=== PATIENT | female | born 1960 | race Caucasian/White ===

== ENCOUNTER 2018-01-18 12:30 | Outpatient (CLI) | payer OTHER ==
[2018-01-18 13:04] LABS: Bilirubin Negative (Negative); Blood, Urine Negative (Negative); Clarity CLEAR (Clear); Glucose, Urine (Dipstick) Negative (Negative); Leukocyte Moderate (Negative); Nitrite Negative (Negative); Protein, Urine (Dipstick) Negative (Neg-Trace); Specific Gravity, Urine 1.011 (1.002-1.036); Urobilinogen 0.2 mg/dL (0.2-1.0)
[2018-01-18 13:12] LABS: Bacteria/HPF Rare-Few HPF (None Seen); Hyaline Casts/LPF 0-3 HYALINE CAST LPF (0-3 Hyaline); RBC/HPF None Seen HPF (0-3); Squamous Epithelial 0-3 HPF (0-3)
[2018-01-18 13:21] LABS: Anion Gap 11 mmol/L (10-20); BUN (Urea Nitrogen) 17 mg/dL (9.8-20.1); Calc. Creatinine Clearance 0 mL/min (70-130); Calcium 9.9 mg/dL (7.8-10.44); Carbon Dioxide 29 mmol/L (22-29); Chloride 105 mmol/L (98-107); Estimated GFR-MDRD 89; Glucose 93 mg/dL (70-105); Potassium 4.1 mmol/L (3.5-5.1); Sodium 141 mmol/L (136-145)
--- NOTE | 2018-01-18 15:34 | ULT ---
BILATERAL RENAL ULTRASOUND COMPLETE: 01/18/18 HISTORY: 57-year-old female with history of ureter disorder. COMPARISON: 04/27/16. Right kidney measures 12.1 x 4.4 x 5.7 cm. The left kidney measures 11.4 x 5.0 x 5.0 cm. There is slight fullness of both right and left renal upper collecting systems primarily renal pelvis es but stable from prior exams. Small stable right renal hyperechoic focus probably a small angiomyol ipoma. IMPRESSION: Minimal stable dilatation of the right extrarenal pelvis with less marked changes on the left side. 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 POS: RADHA
--- NOTE | 2018-01-18 17:13 | NM ---
RADIONUCLIDE RENOGRAM: 01/18/18 HISTORY: Chronic UPJ obstruction. FINDINGS: There is good arterial flow into each kidney and good uptake of contrast initially within the renal c ollecting systems. Good washout is demonstrated bilaterally. T1/2 right kidney is 8.9 minutes. Left k idney 6.1 minutes. Normalized GFR is 183 mL/minute. Right kidney accounts for 47% of the uptake. Left kidney accounts for 53%. IMPRESSION: Symmetric and appropriate bilateral renal function. No evidence of urinary tract obstruction. POS: NANDO
== END 2018-01-18 12:31 | disposition home or self-care (01) ==
LOC: ULT 12:30
PROVIDERS: ATTEND Urology
DX: N13.5 Crossing vessel and stricture of ureter without hydronephrosis (principal); R35.0 Frequency of micturition; D30.01 Benign neoplasm of right kidney
CPT/HCPCS: 76770; 78708; 80048; 81001; 87086; A4641; A9562

== ENCOUNTER 2018-11-19 08:45 | Inpatient (IN) | payer OTHER ==
[2018-12-31] MEDS ORDERED: Sodium Chloride 0.9% 100 ML ONE (06:58)
[2018-12-31] MEDS ORDERED: Tranexamic Acid 1,000 MG/10 ML VIAL ONE ×2 (06:58→12:04)
[2018-12-31] MEDS ORDERED: Vancomycin HCl 1.5 GM in Sodium Chloride 0.9% 250 ML 300 ML IVPB SCH ×2 (07:15→20:00)
[2018-12-31] MEDS ORDERED: Scopolamine 1.5 mg/72 hour Patch ONE (07:59)
[2018-12-31] MEDS ORDERED: Fentanyl 100 MCG/2 ML VIAL ONE (08:13)
[2018-12-31] MEDS ORDERED: Midazolam HCl 2 mg/2 ml Vial ONE (08:13)
[2018-12-31] MEDS ORDERED: Ropivacaine HCl/PF 250 ML in Premix Bag 1 BAG NERVE BLCK SCH (09:23)
[2018-12-31] MEDS ORDERED: traMADol HCl 50 MG TAB PO PRN ×2 (09:23)
[2018-12-31] MEDS ORDERED: Ondansetron PF 4 MG/2 ML Vial IVP PRN ×2 (09:23→09:52)
[2018-12-31] MEDS ORDERED: Promethazine HCl 25 MG/ML VIAL IM PRN ×3 (09:23→11:54)
[2018-12-31] MEDS ORDERED: HYDROcodone/Acetaminophen 10/325 mg Tablet PO PRN (09:23)
[2018-12-31] MEDS ORDERED: Zolpidem Tartrate 5 MG TAB PO PRN ×2 (09:23→09:52)
[2018-12-31] MEDS ORDERED: Bupivacaine PF 0.5% 30 ML VIAL ONE ×2 (09:29→09:31)
[2018-12-31] MEDS ORDERED: diphenhydrAMINE 25 MG CAP PO PRN ×2 (09:52→09:53)
[2018-12-31] MEDS ORDERED: Acetaminophen 325 MG TAB PO PRN (09:52)
[2018-12-31] MEDS ORDERED: Tranexamic Acid 1,000 MG in Sodium Chloride 0.9% 100 ML IVPB SCH (10:00)
[2018-12-31] MEDS ORDERED: PROPOFOL 20 ML ONE ×2 (10:06→10:07)
[2018-12-31] MEDS ORDERED: Ropivacaine 0.2% HCl/PF (40 MG/20 ML VIAL) ONE (11:24)
[2018-12-31] MEDS ORDERED: Ropivacaine 0.5% HCl/PF (150 MG/30 ML VIAL) ONE (11:24)
[2018-12-31] MEDS ORDERED: PROPOFOL 200 MG/20 ML VIAL ONE (11:31)
[2018-12-31] MEDS ORDERED: PHENYLEPHRINE-NS 100 MCG/ML 10 ML SYRINGE ONE (11:31)
[2018-12-31] MEDS ORDERED: Ketorolac Tromethamine 30 MG/ML VIAL ONE (11:31)
[2018-12-31] MEDS ORDERED: Ondansetron PF 4 MG/2 ML Vial ONE (11:31)
[2018-12-31] MEDS ORDERED: Dexamethasone 20 MG/5 ML VIAL ONE (11:31)
[2018-12-31] MEDS ORDERED: Ondansetron HCl/PF 4 MG/2 ML Vial IVP PRN (11:54)
[2018-12-31] MEDS ORDERED: Promethazine HCl 25 MG/ML VIAL SLOW IVP PRN (11:54)
--- NOTE | 2018-12-31 12:12 | OP ---
DATE OF PROCEDURE: 12/31/2018 SURGEON: Nicolas Milligan MD SUPERVISOR CEMETERY WORKERS: Carlos Enrique Cavanaugh PA-C PREOPERATIVE DIAGNOSIS: Left knee osteoarthrosis. POSTOPERATIVE DIAGNOSIS: Left knee osteoarthrosis. PROCEDURE PERFORMED: Left total knee replacement using Fazal pinless navigation. ANESTHESIA: She had general anesthetic as well as preoperative block. BLOOD LOSS: Minimal. COMPLICATIONS: None. DISPOSITION: She did go to Recovery Room in stable condition. IMPLANTS: To the left knee include Fazal triathlon total knee system, femur size 5 cruciate retaining femur. Size 4 primary tibial base plate. We used a 4 x 9 mm CS X3 plastic and we used A29 x 9 X3 patella. INDICATIONS: Xenia is a 58-year-old active female, who has unfortunately had knee arthritis for many years. At this time, she has failed nonoperative treatment and wished to have her knee replaced. PROCEDURE IN DETAIL: After all appropriate consent forms were explained and signed, the patient was taken back to the operating room and at this time was given general anesthetic. Once the level of anesthesia was appropriate, a well-padded tourniquet was placed on the left leg, and the leg was then prepped and draped in standard surgical fashion. The limb was exsanguinated and tourniquet taken up to 300 mmHg. Midline incision was made with a 10 blade down through the skin and subcutaneous tissue. Bovie electrocautery was used to coagulate any brisk venous bleeding. A new blade was used to make a medial parapatellar arthrotomy. Small subperiosteal release was performed medially and excess fat pad was removed. The knee was flexed up to gain access to the femur. The femur was navigated and distal femoral resection was made. Epicondylar access was used to align our sizing jig and this was pinned in place. We sized our femur to be a size 5 cruciate retaining femur. 4:1 cutting block was applied and pinned. Anterior and posterior chamfer cuts were then made. We navigated out our proximal tibia and made our proximal tibial resection. Spreaders were used to remove any posterior osteophytes off the back of the femur as well as remaining meniscal tissue. A long alignment idalmis was then used to achieve correct rotation of our tibial baseplate and a size 4 primary tibial base plate was chosen. This was pinned in place. We trialed the polyethylene and a 4 x 9 mm CS X3 plastic polyethylene gave us full extension and good stability throughout range of motion. Two towel clips and a saw were used to cut our patella. Three lug nuts were drilled and A29 x 9 X3 patella was trialed which sat nicely in the trochlear groove. We then drilled our femur and punched our tibia. All components were removed. The knee was thoroughly irrigated and dried. Cement was mixed into the cement gun on the back table. Components were then placed. The knee was held out in full extension until the cement had dried. All excess bone cement was removed. Multiple #2 Vicryl stitches as well as a Quill were used to close our extensor mechanism. 0 Quill followed by a running Monoderm was then used to close the skin. Surgicel glue was then used on the skin. Once this had dried, soft tissue dressing was applied to the limb, tourniquet was let down, and the toes pinked up nicely. The patient was then awakened and taken to the recovery room in stable condition. All counts were correct at the end of the case. The patient did receive preoperative IV antibiotics. The patient was injected with Exparel for postoperative pain relief. Job ID: [id number] [facility]
[2018-12-31] MEDS ORDERED: Promethazine HCl 25 MG/ML VIAL ONE (13:09)
[2018-12-31] MEDS: Sodium Chloride 0.9% 1,000 ML IV SCH ×3 (14:17→20:09)
[2018-12-31] MEDS ORDERED: Loperamide HCl 2 MG CAP PO PRN (14:59)
[2018-12-31] MEDS ORDERED: Artificial Tear Sol 15 ML BOT EA EYE PRN (14:59)
[2018-12-31] MEDS ORDERED: Diabetic Tussin 200 MG/10 ML UDCUP PO PRN (14:59)
[2018-12-31] MEDS ORDERED: Eucerin (Mineral Oil/Petrolatum,White) 30 gm Jar TOP PRN (14:59)
[2018-12-31] MEDS ORDERED: Sodium Chloride 0.65% Nasal 44 ML BOT EA NARE PRN (14:59)
[2018-12-31] MEDS ORDERED: hydrALAZINE 20 MG/ML VIAL SLOW IVP PRN (14:59)
[2018-12-31] MEDS ORDERED: Cepastat Lozenges 1 LOZ PO PRN (14:59)
--- NOTE | 2018-12-31 15:17 | PDOC.PN ---
- Subjective Encounter Start Date: 12/31/18 Encounter Start Time: 14:45 -: old records requested/rev pt is admitted for left TKR consulted for medical management Patient seen and examined. No new complaints. pain controlled post op doing ok - Objective Resuscitation Status - Order Detail: 12/31/18 14:59 Resuscitation Status Routine Resuscitation Status: FULL: Full Resuscitation MAR Reviewed: Yes Vital Signs & Weight: Weight Weight 198 lb Additional Labs: old [employer] report reviewed and all labs are normal Phys Exam - Physical Examination Constitutional: NAD HEENT: PERRLA, moist MMs, sclera anicteric Neck: no JVD, supple Respiratory: no wheezing, no rales, no rhonchi Cardiovascular: RRR, no significant murmur, no rub Gastrointestinal: soft, non-tender, no distention, positive bowel sounds Musculoskeletal: no edema, pulses present right knee with dressing, nerve block in place Neurological: non-focal, normal sensation Lymphatic: no nodes Psychiatric: normal affect, A&O x 3 Skin: no rash, normal turgor Dx/Plan (1) Status post total left knee replacement Code(s): Z96.652 - PRESENCE OF LEFT ARTIFICIAL KNEE JOINT Status: Acute (2) Dyslipidemia Code(s): E78.5 - HYPERLIPIDEMIA, UNSPECIFIED Status: Chronic (3) GERD (gastroesophageal reflux disease) Code(s): K21.9 - GASTRO-ESOPHAGEAL REFLUX DISEASE WITHOUT ESOPHAGITIS Status: Chronic (4) Obesity (BMI 30.0-34.9) Code(s): E66.9 - OBESITY, UNSPECIFIED Status: Chronic (5) PAF (paroxysmal atrial fibrillation) Code(s): I48.0 - PAROXYSMAL ATRIAL FIBRILLATION Status: Chronic - Plan cont current plan of care, PT/OT * continue aspirin for now for DVT prophylaxis, consider restarting elliquis when surgeon OK * nerve block as per anesthesia * home medication reconciled * medication reviewed as below * symptomatic treatment * pain controlled * post operative care as per surgeon * code status full code * will follow * medically stable for now. Review of Systems - Review of Systems ENT: negative: Ear Pain, Ear Discharge, Nose Pain, Nose Discharge, Nose Congestion, Mouth Pain, Mouth Swelling, Throat Pain, Throat Swelling, Other Respiratory: negative: Cough, Dry, Shortness of Breath, Hemoptysis, SOB with Excertion, Pleuritic Pain, Sputum, Wheezing Cardiovascular: negative: chest pain, palpitations, orthopnea, paroxysmal nocturnal dyspnea, edema, light headedness, other Gastrointestinal: negative: Nausea, Vomiting, Abdominal Pain, Diarrhea, Constipation, Melena, Hematochezia, Other Genitourinary: negative: Dysuria, Frequency, Incontinence, Hematuria, Retention , Other Musculoskeletal: negative: Neck Pain, Shoulder Pain, Arm Pain, Back Pain, Hand Pain, Leg Pain, Foot Pain, Other Skin: negative: Rash, Lesions, [place], Bruising, Other - Medications/Allergies Allergies/Adverse Reactions: Allergies Allergy/AdvReac Type Severity Reaction Status Date / Time No Known Allergies Allergy Verified 12/20/18 09:00 Medications: Current Medications Acetaminophen (Tylenol) 650 mg PO Q4H PRN PRN Reason: Headache/Fever or Pain Hydrocodone Bitart/Acetaminophen ([place] 10/325) 1 tab PO Q4H PRN PRN Reason: Pain (1-3) Hydrocodone Bitart/Acetaminophen ([place] 10/325) 2 tab PO Q4H PRN PRN Reason: PAIN (4-6) Artificial Tears (Tears Naturale) 2 drop EA EYE PRN PRN PRN Reason: Dry Eyes Aspirin (Ecotrin) 81 mg PO BID [facility] Colestipol HCl (Colestid) 1 gm PO DAILY [facility] Diphenhydramine HCl (Benadryl) 25 mg PO Q6H PRN PRN Reason: Itching Diphenhydramine HCl (Benadryl) 25 mg PO HS PRN PRN Reason: Allergies Dronedarone (Multaq) 400 mg PO BID [facility] Fentanyl (Sublimaze) 50 mcg IV Q1H PRN PRN Reason: BREAKTHRU PAIN Ferrous Gluconate (Fergon) 324 mg PO BID [facility] Gabapentin (Neurontin) 900 mg PO BID [facility] Guaifenesin (Robitussin Sf) 200 mg PO Q4H PRN PRN Reason: Cough Hydralazine HCl (Apresoline) 10 mg SLOW IVP Q4H PRN PRN Reason: SBP > 180 and HR < 70 Vancomycin HCl 1.5 gm/ Sodium (Chloride) 300 mls @ 200 mls/hr IVPB ONCALL-OR [facility] Ropivacaine 250 ml/ Device 250 mls @ 10 mls/hr NERVE BLCK INF [facility] Cefazolin Sodium/Dextrose 2 gm (/ Device) 50 mls @ 100 mls/hr IVPB 0800,1600, 2359 [facility] Stop: 01/01/19 00:28 Sodium Chloride (Normal Saline 0.9%) 1,000 mls @ 100 mls/hr IV .Q10H [facility] Last Admin: 12/31/18 14:17 Dose: Not Given Vancomycin HCl 1.5 gm/ Sodium (Chloride) 300 mls @ 200 mls/hr IVPB 1999 [facility] Stop: 12/31/18 21:29 Iron/Minerals/Multivitamins (Theragran M) 1 tab PO DAILY [facility] Ketorolac Tromethamine (Toradol) 30 mg IVP Q6HR [facility] Stop: 01/02/19 06:01 Loperamide HCl (Imodium) 2 mg PO PRN PRN PRN Reason: Diarrhea/Loose Stools Mineral Oil/White Petrolatum (Eucerin Cream) 0 gm TOP BIDPRN PRN PRN Reason: Dry Skin Ondansetron HCl (Zofran) 4 mg IVP Q6H PRN PRN Reason: Nausea/Vomiting Ondansetron HCl (Zofran) 4 mg IVP Q6H PRN PRN Reason: Nausea/Vomiting Pantoprazole Sodium (Protonix) 40 mg PO DAILY [facility] Promethazine HCl (Phenergan) 12.5 mg IM Q4H PRN PRN Reason: Nausea Promethazine HCl (Phenergan) 12.5 mg IM Q4H PRN PRN Reason: Nausea/Vomiting Senna/Docusate Sodium (Senokot S) 2 tab PO BID [facility] Sodium Chloride (Flush - Normal Saline) 10 ml IVF PRN PRN PRN Reason: Saline Flush Sodium Chloride ([place] Nasal [place] 0.65%) 0 ml EA NARE QIDPRN PRN PRN Reason: Nasal Congestion Throat Lozenges (Cepastat Lozenges) 1 tony PO Q2H PRN PRN Reason: Sore Throat Tramadol HCl (Ultram) 50 mg PO Q6H PRN PRN Reason: Mild Pain (1-3) Tramadol HCl (Ultram) 100 mg PO Q6H PRN PRN Reason: Moderate Pain 4-6 Zolpidem Tartrate (Ambien) 5 mg PO HSPRN PRN PRN Reason: Insomnia Zolpidem Tartrate (Ambien) 5 mg PO HSPRN PRN PRN Reason: Insomnia
[2018-12-31] MEDS: Ketorolac Tromethamine 30 MG/ML VIAL IVP SCH ×3 (15:51→23:22)
[2018-12-31] MEDS: CEFAZOLIN 2 GM in Premix Bag 1 BAG IVPB SCH ×2 (17:11→23:22)
[2018-12-31] MEDS: Dronedarone HCl 400 MG TAB PO SCH (20:07)
[2018-12-31] MEDS: Aspirin 81 mg Enteric Coated Tablet PO SCH (20:07)
[2018-12-31] MEDS: Gabapentin 300 MG CAP PO SCH (20:08)
[2019-01-01] MEDS: HYDROcodone/Acetaminophen 10/325 mg Tablet PO PRN ×4 (02:46→20:40)
[2019-01-01 05:58] LABS: Hemoglobin 11.1 g/dL (12.0-16.0); Mean Corpuscular HGB CONC 32.1 g/dL (32.0-36.0); Mean Corpuscular Hemoglobin 30.8 pg (27.0-31.0); Platelet Count 217 thou/uL (130-400); RBC Distribution Width 11.8 % (11.5-14.5); White Blood Cell (WBC) Count 9.4 thou/uL (4.8-10.8)
[2019-01-01] MEDS: Ketorolac Tromethamine 30 MG/ML VIAL IVP SCH ×3 (06:22→17:44)
[2019-01-01] MEDS: Sodium Chloride 0.9% 1,000 ML IV SCH ×2 (06:25→17:05)
[2019-01-01] MEDS: Multivitamin W/ Minerals 1 TAB PO SCH (08:02)
[2019-01-01] MEDS: Dronedarone HCl 400 MG TAB PO SCH ×2 (08:04→20:39)
[2019-01-01] MEDS: Ferrous Gluconate 324 MG TAB PO SCH ×2 (08:04→20:45)
[2019-01-01] MEDS: Senokot S 8.6-50 MG TAB PO SCH ×2 (08:04→20:45)
[2019-01-01] MEDS: Aspirin 81 mg Enteric Coated Tablet PO SCH ×2 (08:04→20:39)
[2019-01-01] MEDS: Fentanyl 100 MCG/2 ML VIAL IV PRN ×3 (08:24→13:40)
[2019-01-01 10:36] VITALS: BMI 31.0
[2019-01-01] MEDS: Gabapentin 300 MG CAP PO SCH ×2 (10:42→20:39)
--- NOTE | 2019-01-01 11:52 | PDOC.PN ---
- Subjective Encounter Start Date: 01/01/19 Encounter Start Time: 07:50 Patient seen and examined. No new complaints. No overnight events - Objective Resuscitation Status - Order Detail: 12/31/18 14:59 Resuscitation Status Routine Resuscitation Status: FULL: Full Resuscitation MAR Reviewed: Yes Vital Signs & Weight: Vital Signs (12 hours) Temp Pulse Resp BP BP Pulse Ox 01/01/19 08:00 97 01/01/19 07:40 99.5 F 63 18 127/74 97 01/01/19 05:00 99.2 F 65 18 132/77 97 Weight Admit Weight 198 lb Weight 198 lb I&O: 12/31/18 01/01/19 01/02/19 06:59 06:59 06:59 Intake Total 2970 Output Total 1550 Balance 1420 Result Diagrams: 01/01/19 04:52 Phys Exam - Physical Examination Constitutional: NAD HEENT: PERRLA, moist MMs, sclera anicteric Neck: no JVD, supple Respiratory: no wheezing, no rales, no rhonchi Cardiovascular: RRR, no significant murmur, no rub Gastrointestinal: soft, non-tender, no distention, positive bowel sounds Musculoskeletal: no edema, pulses present left knee with dressing, nerve block in place Neurological: non-focal, normal sensation, moves all 4 limbs Lymphatic: no nodes Psychiatric: normal affect, A&O x 3 Skin: no rash, normal turgor Dx/Plan (1) Status post total left knee replacement Code(s): Z96.652 - PRESENCE OF LEFT ARTIFICIAL KNEE JOINT Status: Acute (2) Dyslipidemia Code(s): E78.5 - HYPERLIPIDEMIA, UNSPECIFIED Status: Chronic (3) GERD (gastroesophageal reflux disease) Code(s): K21.9 - GASTRO-ESOPHAGEAL REFLUX DISEASE WITHOUT ESOPHAGITIS Status: Chronic (4) Obesity (BMI 30.0-34.9) Code(s): E66.9 - OBESITY, UNSPECIFIED Status: Chronic (5) PAF (paroxysmal atrial fibrillation) Code(s): I48.0 - PAROXYSMAL ATRIAL FIBRILLATION Status: Chronic (6) Anemia, normocytic normochromic Code(s): D64.9 - ANEMIA, UNSPECIFIED Status: Acute - Plan cont current plan of care, plan discussed w/ family, PT/OT * medication reviewed as below * symptomatic treatment * pain controlled * nerve block as per anesthesia * PT/OT as per [facility] protocol * continue aspirin for DVT prophylaxis * discharge per primary team * medically stable for now.. Review of Systems - Review of Systems ENT: negative: Ear Pain, Ear Discharge, Nose Pain, Nose Discharge, Nose Congestion, Mouth Pain, Mouth Swelling, Throat Pain, Throat Swelling, Other Respiratory: negative: Cough, Dry, Shortness of Breath, Hemoptysis, SOB with Excertion, Pleuritic Pain, Sputum, Wheezing Cardiovascular: negative: chest pain, palpitations, orthopnea, paroxysmal nocturnal dyspnea, edema, light headedness, other Gastrointestinal: negative: Nausea, Vomiting, Abdominal Pain, Diarrhea, Constipation, Melena, Hematochezia, Other Genitourinary: negative: Dysuria, Frequency, Incontinence, Hematuria, Retention , Other Musculoskeletal: negative: Neck Pain, Shoulder Pain, Arm Pain, Back Pain, Hand Pain, Leg Pain, Foot Pain, Other - Medications/Allergies Allergies/Adverse Reactions: Allergies Allergy/AdvReac Type Severity Reaction Status Date / Time No Known Allergies Allergy Verified 12/20/18 09:00 Medications: Current Medications Acetaminophen (Tylenol) 650 mg PO Q4H PRN PRN Reason: Headache/Fever or Pain Hydrocodone Bitart/Acetaminophen ([place] 10/325) 1 tab PO Q4H PRN PRN Reason: Pain (1-3) Hydrocodone Bitart/Acetaminophen ([place] 10/325) 2 tab PO Q4H PRN PRN Reason: PAIN (4-6) Last Admin: 01/01/19 09:19 Dose: 2 tab Artificial Tears (Tears Renewed 15ml Bottle) 2 drop EA EYE PRN PRN PRN Reason: Dry Eyes Aspirin (Ecotrin) 81 mg PO BID [facility] Last Admin: 01/01/19 08:04 Dose: 81 mg Colestipol HCl (Colestid) 1 gm PO 0600 [facility] Last Admin: 01/01/19 06:21 Dose: 1 gm Diphenhydramine HCl (Benadryl) 25 mg PO Q6H PRN PRN Reason: Itching Diphenhydramine HCl (Benadryl) 25 mg PO HS PRN PRN Reason: Allergies Dronedarone (Multaq) 400 mg PO BID [facility] Last Admin: 01/01/19 08:04 Dose: 400 mg Fentanyl (Sublimaze) 50 mcg IV Q1H PRN PRN Reason: BREAKTHRU PAIN Last Admin: 01/01/19 11:07 Dose: 50 mcg Ferrous Gluconate (Fergon) 324 mg PO BID [facility] Last Admin: 01/01/19 08:04 Dose: Not Given Gabapentin (Neurontin) 900 mg PO BID [facility] Last Admin: 01/01/19 10:42 Dose: 900 mg Guaifenesin (Robitussin Sf) 200 mg PO Q4H PRN PRN Reason: Cough Hydralazine HCl (Apresoline) 10 mg SLOW IVP Q4H PRN PRN Reason: SBP > 180 and HR < 70 Vancomycin HCl 1.5 gm/ Sodium (Chloride) 300 mls @ 200 mls/hr IVPB ONCALL-OR [facility] Ropivacaine 250 ml/ Device 250 mls @ 10 mls/hr NERVE BLCK INF [facility] Sodium Chloride (Normal Saline 0.9%) 1,000 mls @ 100 mls/hr IV .Q10H [facility] Last Admin: 01/01/19 06:25 Dose: Not Given Iron/Minerals/Multivitamins (Theragran M) 1 tab PO DAILY [facility] Last Admin: 01/01/19 08:02 Dose: 1 tab Ketorolac Tromethamine (Toradol) 30 mg IVP Q6HR [facility] Stop: 01/02/19 06:01 Last Admin: 01/01/19 11:08 Dose: 30 mg Loperamide HCl (Imodium) 2 mg PO PRN PRN PRN Reason: Diarrhea/Loose Stools Mineral Oil/White Petrolatum (Eucerin Cream) 0 gm TOP BIDPRN PRN PRN Reason: Dry Skin Ondansetron HCl (Zofran) 4 mg IVP Q6H PRN PRN Reason: Nausea/Vomiting Ondansetron HCl (Zofran) 4 mg IVP Q6H PRN PRN Reason: Nausea/Vomiting Pantoprazole Sodium (Protonix) 40 mg PO DAILY [facility] Last Admin: 01/01/19 08:04 Dose: 40 mg Promethazine HCl (Phenergan) 12.5 mg IM Q4H PRN PRN Reason: Nausea Last Admin: 12/31/18 23:25 Dose: 12.5 mg Promethazine HCl (Phenergan) 12.5 mg IM Q4H PRN PRN Reason: Nausea/Vomiting Senna/Docusate Sodium (Senokot S) 2 tab PO BID [facility] Last Admin: 01/01/19 08:04 Dose: Not Given Sodium Chloride (Flush - Normal Saline) 10 ml IVF PRN PRN PRN Reason: Saline Flush Sodium Chloride ([place] Nasal [place] 0.65%) 0 ml EA NARE QIDPRN PRN PRN Reason: Nasal Congestion Throat Lozenges (Cepastat Lozenges) 1 tony PO Q2H PRN PRN Reason: Sore Throat Tramadol HCl (Ultram) 50 mg PO Q6H PRN PRN Reason: Mild Pain (1-3) Tramadol HCl (Ultram) 100 mg PO Q6H PRN PRN Reason: Moderate Pain 4-6 Last Admin: 01/01/19 07:17 Dose: 100 mg Zolpidem Tartrate (Ambien) 5 mg PO HSPRN PRN PRN Reason: Insomnia Zolpidem Tartrate (Ambien) 5 mg PO HSPRN PRN PRN Reason: Insomnia
[2019-01-02] MEDS: Sodium Chloride 0.9% 1,000 ML IV SCH ×2 (01:08→14:50)
[2019-01-02] MEDS: HYDROcodone/Acetaminophen 10/325 mg Tablet PO PRN ×3 (01:08→09:53)
[2019-01-02] MEDS: Ketorolac Tromethamine 30 MG/ML VIAL IVP SCH ×2 (01:08→05:54)
[2019-01-02 05:00] LABS: Hemoglobin 10.8 g/dL (12.0-16.0); Mean Corpuscular HGB CONC 32.6 g/dL (32.0-36.0); Mean Corpuscular Hemoglobin 31.4 pg (27.0-31.0); Mean Corpuscular Volume 96.2 fL (78.0-98.0); Mean Platelet Volume 9.7 fL (7.4-10.4); Platelet Count 202 thou/uL (130-400); RBC Distribution Width 11.9 % (11.5-14.5); Red Blood Cell (RBC) Count 3.44 mill/uL (4.20-5.40); White Blood Cell (WBC) Count 8.5 thou/uL (4.8-10.8)
[2019-01-02] MEDS: Multivitamin W/ Minerals 1 TAB PO SCH (08:17)
[2019-01-02] MEDS: Aspirin 81 mg Enteric Coated Tablet PO SCH (08:17)
[2019-01-02] MEDS: Dronedarone HCl 400 MG TAB PO SCH (08:17)
[2019-01-02] MEDS: Ferrous Gluconate 324 MG TAB PO SCH ×2 (08:17→08:20)
[2019-01-02] MEDS: Senokot S 8.6-50 MG TAB PO SCH (08:18)
[2019-01-02] MEDS: Gabapentin 300 MG CAP PO SCH (08:18)
[2019-01-02] MEDS: Fentanyl 100 MCG/2 ML VIAL IV PRN (09:56)
[2019-01-02 14:49] VITALS: BP 122/69; TEMP 98.7
--- NOTE | 2019-01-03 12:31 | DIS ---
DATE OF ADMISSION: 12/31/2018 DATE OF DISCHARGE: 01/02/2019 ADMISSION DIAGNOSIS: End-stage tricompartmental osteoarthritis, left knee. DISCHARGE DIAGNOSIS: End-stage tricompartmental osteoarthritis, left knee. OPERATIVE PROCEDURE: Left total knee arthroplasty. DISCHARGE DISPOSITION: To home. CONSULTANTS: 1. [facility] for acute postop pain management. [facility]. [facility]. BRIEF CLINICAL HISTORY: The patient was admitted to [facility] and underwent the above elective procedure on the date of admission without intra-, angelina-, or postoperative complication. The hospital course was unremarkable. At the time of discharge, the patient is afebrile, ambulatory without assistance utilizing a rolling walker in a full weightbearing fashion, tolerating a regular diet, and voiding without difficulty. The patient's incision is clean and closed without any erythema. DISCHARGE MEDICATIONS: Please see medication reconciliation form. We will be happy to see the patient on an as-needed basis between now and the patient's next scheduled appointment. CONDITION ON DISCHARGE: Stable. PROGNOSIS: Good. DISPOSITION: Discharged to home. Job ID: [id number]
== END 2019-01-02 12:13 | disposition home or self-care (01) | DRG 470 ==
LOC: SURG A 12-31 06:37 → SJJU 12-31 13:17
PROVIDERS: ADMIT Orthopaedic Surgery; ATTEND Orthopaedic Surgery
PROC: 0SRD0J9 Replacement of Left Knee Joint with Synthetic Substitute, Cemented, Open Approach (ICD-10-PCS; principal; 2018-12-31)
DX: M17.12 Unilateral primary osteoarthritis, left knee (principal); E78.5 Hyperlipidemia, unspecified; K21.9 Gastro-esophageal reflux disease without esophagitis; E66.9 Obesity, unspecified; I48.0 Paroxysmal atrial fibrillation; D64.9 Anemia, unspecified; Z68.31 Body mass index [BMI] 31.0-31.9, adult
CPT/HCPCS: 36415; 85027; C1713; C1776; J1100; J1885; J2250; J2405; J2550; J2704; J2795; J3010; J3370; J7050; S0020

== ENCOUNTER 2018-12-20 01:20 | Outpatient (CLI) | payer OTHER ==
[2018-12-20 09:55] LABS: #Eosinphils 0.1 thou/uL (0.0-0.7); #Lymphocytes 1.9 thou/uL (1.20-3.40); #Monocytes 0.4 thou/uL (0.11-0.59); #Neutrophils 1.7 thou/uL (1.40-6.50); %Basophils 1.2 % (0.0-1.0); %Eosinophils 2.2 % (0.0-10.0); %Lymphocytes 45.4 % (21.0-51.0); %Monocytes 10.5 % (0.0-10.0); %Neutrophils 40.7 % (42.0-75.0); Hemoglobin 13.8 g/dL (12.0-16.0); Mean Corpuscular HGB CONC 31.6 g/dL (32.0-36.0); Mean Corpuscular Hemoglobin 29.8 pg (27.0-31.0); Mean Corpuscular Volume 94.3 fL (78.0-98.0); Mean Platelet Volume 8.7 fL (7.4-10.4); Platelet Count 268 thou/uL (130-400); RBC Distribution Width 11.9 % (11.5-14.5); Red Blood Cell (RBC) Count 4.61 mill/uL (4.20-5.40); White Blood Cell (WBC) Count 4.1 thou/uL (4.8-10.8)
[2018-12-20 09:57] LABS: Bilirubin Negative (Negative); Blood, Urine Negative (Negative); Clarity CLEAR (Clear); Glucose, Urine (Dipstick) Negative (Negative); Leukocyte Moderate (Negative); Nitrite Negative (Negative); Protein, Urine (Dipstick) Negative (Neg-Trace); Specific Gravity, Urine 1.018 (1.002-1.036); Urobilinogen 0.2 mg/dL (0.2-1.0)
[2018-12-20 10:02] LABS: Prothrombin Time 12.9 SEC (12.0-14.7)
[2018-12-20 10:03] LABS: Bacteria/HPF None Seen HPF (None Seen); Hyaline Casts/LPF 0-3 HYALINE CAST LPF (0-3 Hyaline); Pathc Cast-AUWi Flag 0.29 (0-2.49); RBC/HPF 0-3 HPF (0-3); Squamous Epithelial 0-3 HPF (0-3); WBC/HPF 0-3 HPF (0-3)
[2018-12-20 10:07] LABS: Anion Gap 12 mmol/L (10-20); BUN (Urea Nitrogen) 20 mg/dL (9.8-20.1); Calc. Creatinine Clearance 0 mL/min (70-130); Calcium 9.8 mg/dL (7.8-10.44); Carbon Dioxide 26 mmol/L (22-29); Chloride 106 mmol/L (98-107); Estimated GFR-MDRD 88; Glucose 87 mg/dL (70-105); Sodium 140 mmol/L (136-145)
== END 2018-12-20 01:21 | disposition home or self-care (01) ==
LOC: LABBT 01:20
PROVIDERS: ATTEND Orthopaedic Surgery
DX: Z01.812 Encounter for preprocedural laboratory examination (principal); M17.12 Unilateral primary osteoarthritis, left knee
CPT/HCPCS: 80048; 81001; 85025; 85610; 87081

== ENCOUNTER 2018-12-27 16:41 | Outpatient (CLI) | payer OTHER | END 2018-12-27 16:42 | disposition home or self-care (01) | LOC: LABBT 16:41 | PROVIDERS: ATTEND Orthopaedic Surgery | DX: Z01.812 Encounter for preprocedural laboratory examination (principal); M17.12 Unilateral primary osteoarthritis, left knee | CPT/HCPCS: 86850; 86900; 86901 ==

== ENCOUNTER 2019-03-19 10:50 | Outpatient (CLI) | payer OTHER ==
--- NOTE | 2019-03-19 11:25 | MMO ---
Bilateral MAMMO Bilat Screen [facility]. CLINICAL HISTORY: Patient is 58 years old and is seen for screening. The patient has the following family history of breast cancer: paternal grandmother. The patient has no personal history of cancer. The patient has a history of right needle biopsy in 2003 - benign. VIEWS: The views performed were: bilateral craniocaudal with tomosynthesis and bilateral mediolateral oblique with tomosynthesis. FILMS COMPARED: The present examination has been compared to prior imaging studies performed at [facility] on 03/01/2011, 09/02/2013 and 10/13/2015. MAMMOGRAM FINDINGS: The breasts are heterogeneously dense, which could obscure a lesion on mammography. There are stable benign appearing calcifications seen in both breasts. There are no suspicious masses, suspicious calcifications, or new areas of architectural distortion. IMPRESSION: THERE IS NO MAMMOGRAPHIC EVIDENCE OF MALIGNANCY. A ROUTINE FOLLOW-UP MAMMOGRAM IN 1 YEAR IS RECOMMENDED. THE RESULTS OF THIS EXAM WERE SENT TO THE PATIENT. ACR BI-RADS Category 2 - Benign finding MAMMOGRAPHY NOTE: 1. A negative mammogram report should not delay a biopsy if a dominant of clinically suspicious mass is present. 2. Approximately 10% to 15% of breast cancers are not detected by mammography. 3. Adenosis and dense breasts may obscure an underlying neoplasm.
== END 2019-03-19 10:51 | disposition home or self-care (01) ==
LOC: BICMAMMO 10:50
PROVIDERS: ATTEND Internal Medicine
DX: Z12.31 Encounter for screening mammogram for malignant neoplasm of breast (principal); Z80.3 Family history of malignant neoplasm of breast
CPT/HCPCS: 77063; 77067

== ENCOUNTER 2019-04-12 11:52 | Outpatient (CLI) | payer OTHER ==
--- NOTE | 2019-04-12 12:33 | ULT ---
Bilateral renal ultrasound CLINICAL INDICATION: Benign neoplasm of kidney. COMPARISON: Renal sonograms on 04/27/2016 and 01/18/2018 FINDINGS: Right kidney: There is a stable small echogenic lesion again seen in the midportion right kidney whic h measures 0.8 cm in maximal dimensions. This may represent a small angiomyolipoma. Again noted is evidence of an extrarenal pelvis which is mildly dilated. There is no hydronephrosis.The right kidney measures 11.9 cm x 4.2 cm. Left kidney: There is mild prominence of an extrarenal pelvis. There is no mass, renal calculus, or h ydronephrosis seen on the left. The left kidney measures 10.8 cm x 4.8 cm. Urinary bladder: Within normal limits for degree of distention. IMPRESSION: 1. Stable echogenic lesion midportion right kidney likely related to an angiomyolipoma. 2. Mild dilatation of extrarenal pelves bilaterally, but there is no evidence of hydronephrosis.
--- NOTE | 2019-04-12 17:04 | NM ---
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 Findings: There is symmetric adequate vascular flow to both kidneys. There is normal excretion of rad iotracer. No evidence of obstruction. The split function is 46.9% of the right and 53.1% on the left. T1 half max on the right is 10.7 and left 8.4 minutes. The mean GFR is 96 mL/m. Impression: Normal nuclear medicine renogram. No evidence for obstruction. Bilateral symmetric renal function.
== END 2019-04-12 11:53 | disposition home or self-care (01) ==
LOC: ULT 11:52
PROVIDERS: ATTEND Urology
DX: D30.01 Benign neoplasm of right kidney (principal); Q62.11 Congenital occlusion of ureteropelvic junction; N28.89 Other specified disorders of kidney and ureter
CPT/HCPCS: 36415; 76770; 78708; 80048; 81003; A4641; A9562

== ENCOUNTER 2020-09-21 13:48 | Outpatient (CLI) | payer BC ==
--- NOTE | 2020-09-21 14:07 | ULT ---
US Renal Bilateral STANDARD: 09/21/2020 1:47 PM CLINICAL HISTORY: UPJ obstruction and frequency of micturition. STUDY: Renal ultrasound COMPARISON: 04/12/2019 FINDINGS: Right kidney: Echogenicity: Normal. Masses/cysts: Stable 8 mm hyperechoic mass may represent an angiomyolipoma. Hydronephrosis: Slight enlarged renal pelvis without calyceal dilatation. Calcifications: None. Length: 11.6 cm Left kidney: Echogenicity: Normal. Masses/cysts: None. Hydronephrosis: Slight enlarged renal pelvis without calyceal dilatation. Calcifications: None. Length: 12.0 cm Limited visualization of the urinary bladder is unremarkable. IMPRESSION: 1. Stable echogenic lesion in the right kidney may represent a small angiomyolipoma 2. Bilateral extrarenal pelvises sees versus mild hydronephrosis.
== END 2020-09-21 13:49 | disposition home or self-care (01) ==
LOC: BICULT 13:48
PROVIDERS: ATTEND Urology
DX: D17.71 Benign lipomatous neoplasm of kidney (principal); R35.0 Frequency of micturition; Q62.39 Other obstructive defects of renal pelvis and ureter; N28.9 Disorder of kidney and ureter, unspecified
CPT/HCPCS: 76770

== ENCOUNTER 2020-09-21 14:03 | Outpatient (CLI) | payer BC ==
--- NOTE | 2020-09-21 16:35 | MMO ---
Bilateral MAMMO Bilat Screen [facility]. CLINICAL HISTORY: Patient is 59 years old and is seen for screening. The patient has the following family history of breast cancer: paternal grandmother. The patient has no personal history of cancer. The patient has a history of right needle biopsy in 2003 - benign. VIEWS: The views performed were: bilateral craniocaudal with tomosynthesis and bilateral mediolateral oblique with tomosynthesis. FILMS COMPARED: The present examination has been compared to prior imaging studies performed at [facility] on 03/01/2011, 09/02/2013, 10/13/2015 and 03/19/2019. This study has been interpreted with the assistance of computer-aided detection. MAMMOGRAM FINDINGS: The breasts are heterogeneously dense, which could obscure a lesion on mammography. There are benign appearing calcifications seen in both breasts. There are no suspicious masses, suspicious calcifications, or new areas of architectural distortion. IMPRESSION: THERE IS NO MAMMOGRAPHIC EVIDENCE OF MALIGNANCY. A ROUTINE FOLLOW-UP MAMMOGRAM IN 1 YEAR IS RECOMMENDED. THE RESULTS OF THIS EXAM WERE SENT TO THE PATIENT. ACR BI-RADS Category 2 - Benign finding MAMMOGRAPHY NOTE: 1. A negative mammogram report should not delay a biopsy if a dominant of clinically suspicious mass is present. 2. Approximately 10% to 15% of breast cancers are not detected by mammography. 3. Adenosis and dense breasts may obscure an underlying neoplasm. Reported by: ESTIVEN VAUGHAN MD Electonically Signed: [id number]
== END 2020-09-21 14:04 | disposition home or self-care (01) ==
LOC: BICMAMMO 14:03
PROVIDERS: ATTEND Internal Medicine
DX: Z12.31 Encounter for screening mammogram for malignant neoplasm of breast (principal); Z80.3 Family history of malignant neoplasm of breast; Z91.89 Other specified personal risk factors, not elsewhere classified
CPT/HCPCS: 77063; 77067

== ENCOUNTER 2021-02-10 14:22 | Outpatient (CLI) | payer BC ==
[~2021-02-10 14:22] MED LIST: Iopamidol 370 76% 100 ML VIAL ONE
[2021-02-10 15:15] LABS: Estimated GFR-MDRD - POC Greater than 90
== END 2021-02-10 14:23 | disposition home or self-care (01) ==
LOC: BICCT 14:22
PROVIDERS: ATTEND Urology
DX: D17.71 Benign lipomatous neoplasm of kidney (principal); N13.5 Crossing vessel and stricture of ureter without hydronephrosis; Q62.39 Other obstructive defects of renal pelvis and ureter
CPT/HCPCS: 74178; 82565; Q9967

== ENCOUNTER 2022-03-10 16:30 | Outpatient (CLI) | payer OTHER | END 2022-03-10 16:31 | disposition home or self-care (01) | LOC: SLEEPLAB 16:30 | PROVIDERS: ATTEND Internal Medicine Cardiovascular Disease | DX: G47.10 Hypersomnia, unspecified (principal); G47.33 Obstructive sleep apnea (adult) (pediatric); R53.83 Other fatigue; R06.83 Snoring; F41.9 Anxiety disorder, unspecified; G47.00 Insomnia, unspecified; I48.91 Unspecified atrial fibrillation; K21.9 Gastro-esophageal reflux disease without esophagitis; I10 Essential (primary) hypertension | CPT/HCPCS: 95800 ==

== ENCOUNTER 2022-07-04 17:00 | Outpatient (CLI) | payer OTHER | END 2022-07-04 17:01 | disposition home or self-care (01) | LOC: SLEEPLAB 17:00 | PROVIDERS: ATTEND Nurse Practitioner Family | DX: G47.33 Obstructive sleep apnea (adult) (pediatric) (principal); R53.83 Other fatigue; I51.89 Other ill-defined heart diseases; R06.83 Snoring; G47.10 Hypersomnia, unspecified; E66.9 Obesity, unspecified; Z68.35 Body mass index [BMI] 35.0-35.9, adult | CPT/HCPCS: 95811 ==

== ENCOUNTER 2022-08-25 13:51 | Outpatient (CLI) | payer OTHER, SELFPAY | END 2022-08-25 13:52 | disposition home or self-care (01) | LOC: NM 13:51 | PROVIDERS: ATTEND Urology | DX: N13.5 Crossing vessel and stricture of ureter without hydronephrosis (principal); Q62.11 Congenital occlusion of ureteropelvic junction; N95.2 Postmenopausal atrophic vaginitis | CPT/HCPCS: 78708; A4641; A9562 ==

== ENCOUNTER 2023-08-17 14:50 | Outpatient (CLI) | payer OTHER ==
[2023-08-17 15:49] LABS: #Basophils 0.1 10x3/uL (0.0-0.2); #Eosinphils 0.1 10x3/uL (0.0-0.5); #Monocytes 0.7 10x3/uL (0.0-1.1); #Neutrophils 5.1 10x3/uL (1.5-8.4); %Basophils 0.7 % (0.0-2.0); %Eosinophils 1.1 % (0.0-6.0); %Lymphocytes 31.5 % (18.0-47.0); %Monocytes 7.9 % (0.0-10.0); %Neutrophils 58.7 % (40.0-75.0); Hematocrit 42.1 % (34.9-44.5); Hemoglobin 14.1 g/dL (12.0-15.5); Mean Corpuscular HGB CONC 33.5 g/dL (32.0-36.0); Mean Corpuscular Hemoglobin 30.2 pg (27.0-33.0); Mean Corpuscular Volume 90.1 fl (81.6-98.3); Mean Platelet Volume 10.8 fl (7.4-10.4); Platelet Count 370 10x3/uL (150-450); RBC Distribution Width 13.9 % (11.5-14.5); Red Blood Cell (RBC) Count 4.67 10x6/uL (3.90-5.03); White Blood Cell (WBC) Count 8.7 10x3/uL (3.5-10.5)
[2023-08-17 16:14] LABS: INR-International Normal Ratio 0.9; Prothrombin Time 10.2 sec (9.5-12.1)
[2023-08-17 16:30] LABS: Anion Gap 16 mmol/L (10-20); BUN (Urea Nitrogen) 15 mg/dL (9.8-20.1); Calc. Creatinine Clearance 0 mL/min (70-130); Calcium 9.7 mg/dL (7.8-10.44); Carbon Dioxide 22 mmol/L (23-31); Chloride 104 mmol/L (98-107); Estimated GFR 97; Glucose 111 mg/dL (80-115); Potassium 3.5 mmol/L (3.5-5.1); Sodium 138 mmol/L (136-145)
[2023-08-17 17:10] LABS: Bilirubin Neg (Negative); Blood, Urine Negative (Negative); Clarity Clear (Clear); Glucose, Urine (Dipstick) Normal (Negative); Ketone, Urine Negative (Negative); Leukocyte Negative (Negative); Nitrite Negative (Negative); Protein, Urine (Dipstick) Negative (Neg-Trace); Urobilinogen Normal mg/dL (Less than 2)
== END 2023-08-17 14:51 | disposition home or self-care (01) ==
LOC: LABBT 14:50
PROVIDERS: ATTEND Orthopaedic Surgery
DX: Z01.818 Encounter for other preprocedural examination (principal); M17.11 Unilateral primary osteoarthritis, right knee
CPT/HCPCS: 71046; 80048; 81003; 85025; 85610; 86850; 86900; 86901; 87081

== ENCOUNTER 2023-08-17 15:00 | Inpatient (IN) | payer OTHER ==
[2023-08-21] MEDS ORDERED: Sodium Chloride 0.9% 100 ML ONE ×2 (06:11→06:57)
[2023-08-21] MEDS ORDERED: Vancomycin (BATCH) 1.5 GRAM/300 ML BAG ONE (06:11)
[2023-08-21] MEDS ORDERED: Tranexamic Acid 1,000 MG/10 ML VIAL ONE ×2 (06:11→10:12)
[2023-08-21] MEDS ORDERED: Bupivacaine PF 0.5% 30 ML VIAL ONE (06:19)
[2023-08-21] MEDS ORDERED: Bupivacaine 0.25% HCL 30 ML VIAL ONE (06:51)
[2023-08-21] MEDS ORDERED: Midazolam HCl 2 mg/2 ml Vial ONE (06:56)
[2023-08-21] MEDS ORDERED: fentaNYL 50 mcg/mL 1 mL Vial ONE ×10 (06:56→10:44)
[2023-08-21] MEDS ORDERED: CEFAZOLIN 2 GM VIAL ONE (06:57)
[2023-08-21] MEDS ORDERED: fentaNYL 50 mcg/mL 1 mL Vial SLOW IVP PRN ×2 (07:38→09:51)
[2023-08-21] MEDS ORDERED: diphenhydrAMINE 25 MG CAP PO PRN ×2 (07:38→15:15)
[2023-08-21] MEDS ORDERED: HYDROcodone/Acetaminophen 10/325 mg Tablet PO PRN ×2 (07:38)
[2023-08-21] MEDS ORDERED: Acetaminophen 325 MG TAB PO PRN (07:38)
[2023-08-21] MEDS ORDERED: Promethazine HCl 25 MG/ML VIAL IM PRN ×3 (07:38→15:15)
[2023-08-21] MEDS ORDERED: Ondansetron PF 4 MG/2 ML Vial IVP PRN ×3 (07:38→15:15)
[2023-08-21] MEDS ORDERED: traMADol HCl 50 MG TAB PO PRN (07:38)
[2023-08-21] MEDS ORDERED: Zolpidem Tartrate 5 MG TAB PO PRN ×3 (07:38→15:15)
[2023-08-21] MEDS ORDERED: PROPOFOL 200 MG/20 ML VIAL ONE (07:40)
[2023-08-21] MEDS ORDERED: Dexamethasone 20 MG/5 ML VIAL ONE (07:40)
[2023-08-21] MEDS ORDERED: Bupivacaine HCl 0.5%/Epinephrine 1:200,000/PF 30 ml Vial ONE (07:40)
[2023-08-21] MEDS ORDERED: Ondansetron PF 4 MG/2 ML Vial ONE (07:40)
[2023-08-21] MEDS ORDERED: Tranexamic Acid 1,000 MG in Sodium Chloride 0.9% 100 ML IVPB SCH (07:45)
[2023-08-21] MEDS ORDERED: dilTIAZem 30 MG TAB PO PRN (08:14)
[2023-08-21] MEDS ORDERED: Colestipol 1 GM TAB PO SCH (09:00)
[2023-08-21] MEDS ORDERED: CeleCOXIB 100 MG CAP PO SCH (09:00)
[2023-08-21] MEDS ORDERED: hydrALAZINE 20 MG/ML VIAL ONE (09:51)
[2023-08-21] MEDS ORDERED: Ropivacaine 0.2% 550 ML 550 ML NERVE BLCK SCH (10:00)
[2023-08-21] MEDS ORDERED: Labetalol HCl 100 MG/20 ML VIAL ONE (10:05)
[2023-08-21] MEDS ORDERED: Promethazine HCl 25 MG/ML VIAL ONE (10:28)
[2023-08-21] MEDS ORDERED: HYDROmorphone 0.5 MG/0.5 ML SYRINGE ONE (10:44)
[2023-08-21] MEDS ORDERED: Non-Formulary Medication 1 EACH PO PRN (11:02)
[2023-08-21] MEDS ORDERED: HYDROmorphone 2 MG/ML VIAL SLOW IVP PRN (11:15)
[2023-08-21] MEDS ORDERED: Promethazine HCl 25 MG/ML VIAL IM/IV PRN (11:15)
[2023-08-21] MEDS ORDERED: Ondansetron HCl/PF 4 MG/2 ML Vial IVP PRN (11:15)
[2023-08-21] MEDS ORDERED: Ropivacaine 0.2% HCl/PF 20 ML ONE (12:01)
[2023-08-21] MEDS ORDERED: Scopolamine 1.5 mg/72 hour Patch TOP SCH (13:00)
[2023-08-21] MEDS ORDERED: Fentanyl CADD 100 ML IVPB SCH (15:15)
[2023-08-21] MEDS ORDERED: Naloxone HCl 0.4 mg/ml Vial IV PRN (15:15)
[2023-08-21] MEDS ORDERED: diphenhydrAMINE 50 MG/ML VIAL IM/IV PRN (15:15)
[2023-08-21] MEDS: CEFAZOLIN 2 GM in Sodium Chloride 0.9% 100 ML IVPB SCH (16:14)
[2023-08-21] MEDS ORDERED: Vancomycin 1.5 GRAM/300 ML BAG 1.5 GM in Premix Bag 1 BAG IVPB SCH (18:00)
[2023-08-21] MEDS ORDERED: Pantoprazole 40 MG VIAL IVP SCH (18:30)
[2023-08-21] MEDS: Sodium Chloride 0.9% 1,000 ML IV SCH ×2 (18:45→23:29)
[2023-08-21] MEDS: Mometasone 200 MCG/Formoterol 5 MCG 120 PUFF INHALER INH SCH (19:32)
[2023-08-21 19:47] VITALS: BMI 35.5
[2023-08-21] MEDS: Senokot S 8.6-50 MG TAB PO SCH ×2 (20:26→23:33)
[2023-08-21] MEDS: Aspirin 81 mg Enteric Coated Tablet PO SCH ×2 (20:26→23:30)
[2023-08-21] MEDS: Ketorolac Tromethamine 30 MG/ML VIAL IVP SCH (20:26)
[2023-08-21] MEDS: Dronedarone HCl 400 MG TAB PO SCH ×2 (20:26→23:31)
[2023-08-21] MEDS: Ferrous Gluconate 324 MG TAB PO SCH ×2 (20:26→23:31)
[2023-08-21] MEDS: Cholecalciferol 1,000 UNITS (25 MCG) TAB PO SCH (23:30)
[2023-08-21] MEDS: Ezetimibe 10 MG TAB PO SCH (23:31)
[2023-08-21] MEDS: Hydrochlorothiazide 25 MG TAB PO SCH (23:32)
[2023-08-21] MEDS: Multivitamin W/ Minerals 1 TAB PO SCH (23:32)
[2023-08-22] MEDS: Ketorolac Tromethamine 30 MG/ML VIAL IVP SCH ×4 (01:28→17:18)
[2023-08-22] MEDS: CEFAZOLIN 2 GM in Sodium Chloride 0.9% 100 ML IVPB SCH (01:29)
[2023-08-22] MEDS: Sodium Chloride 0.9% 1,000 ML IV SCH ×3 (01:30→23:30)
[2023-08-22 05:18] LABS: Hematocrit 35.4 % (36.0-47.0); Hemoglobin 11.4 g/dL (12.0-16.0); Mean Corpuscular HGB CONC 32.2 g/dL (32.0-36.0); Mean Corpuscular Hemoglobin 29.3 pg (27.0-31.0); Platelet Count 251 10x3/uL (130-400); RBC Distribution Width 14.5 % (11.5-14.5); Red Blood Cell (RBC) Count 3.89 mill/uL (4.20-5.40); White Blood Cell (WBC) Count 9.6 10x3/uL (4.8-10.8)
[2023-08-22] MEDS: Mometasone 200 MCG/Formoterol 5 MCG 120 PUFF INHALER INH SCH ×2 (07:11→19:26)
[2023-08-22] MEDS ORDERED: Colestipol 1 GM TAB PO SCH ×2 (07:30→10:00)
[2023-08-22] MEDS: Aspirin 81 mg Enteric Coated Tablet PO SCH ×2 (08:18→20:42)
[2023-08-22] MEDS: Cholecalciferol 1,000 UNITS (25 MCG) TAB PO SCH (08:18)
[2023-08-22] MEDS: Dronedarone HCl 400 MG TAB PO SCH ×2 (08:18→20:42)
[2023-08-22] MEDS: Multivitamin W/ Minerals 1 TAB PO SCH (08:18)
[2023-08-22] MEDS: Ezetimibe 10 MG TAB PO SCH (08:19)
[2023-08-22] MEDS: Hydrochlorothiazide 25 MG TAB PO SCH (08:19)
[2023-08-22] MEDS: Ferrous Gluconate 324 MG TAB PO SCH ×2 (08:19→20:43)
[2023-08-22] MEDS: Senokot S 8.6-50 MG TAB PO SCH ×2 (08:20→20:44)
[2023-08-22] MEDS ORDERED: HYDROcodone/Acetaminophen 10/325 mg Tablet PO PRN (12:02)
[2023-08-22] MEDS ORDERED: traMADol HCl 50 MG TAB PO PRN ×2 (12:03)
[2023-08-22] MEDS ORDERED: fentaNYL 50 mcg/mL 1 mL Vial SLOW IVP PRN (12:04)
[2023-08-22] MEDS: HYDROcodone/Acetaminophen 10/325 mg Tablet PO PRN ×3 (13:06→23:26)
[2023-08-23] MEDS: Ketorolac Tromethamine 30 MG/ML VIAL IVP SCH ×3 (00:36→12:28)
[2023-08-23] MEDS ORDERED: Colestipol 1 GM TAB PO SCH (05:00)
[2023-08-23 06:08] LABS: Hematocrit 32.5 % (36.0-47.0); Hemoglobin 10.5 g/dL (12.0-16.0); Mean Corpuscular HGB CONC 32.3 g/dL (32.0-36.0); Mean Corpuscular Hemoglobin 29.6 pg (27.0-31.0); Mean Corpuscular Volume 91.5 fl (78.0-98.0); Platelet Count 247 10x3/uL (130-400); RBC Distribution Width 14.5 % (11.5-14.5); Red Blood Cell (RBC) Count 3.55 mill/uL (4.20-5.40); White Blood Cell (WBC) Count 9.8 10x3/uL (4.8-10.8)
[2023-08-23] MEDS: Mometasone 200 MCG/Formoterol 5 MCG 120 PUFF INHALER INH SCH (08:13)
[2023-08-23] MEDS: Senokot S 8.6-50 MG TAB PO SCH (10:06)
[2023-08-23] MEDS: Dronedarone HCl 400 MG TAB PO SCH (10:06)
[2023-08-23] MEDS: Ferrous Gluconate 324 MG TAB PO SCH (10:06)
[2023-08-23] MEDS: Aspirin 81 mg Enteric Coated Tablet PO SCH (10:07)
[2023-08-23] MEDS: HYDROcodone/Acetaminophen 10/325 mg Tablet PO PRN ×2 (10:07→14:34)
[2023-08-23] MEDS: Ezetimibe 10 MG TAB PO SCH (10:07)
[2023-08-23] MEDS: Multivitamin W/ Minerals 1 TAB PO SCH (10:07)
[2023-08-23] MEDS: Cholecalciferol 1,000 UNITS (25 MCG) TAB PO SCH (10:07)
[2023-08-23] MEDS: Sodium Chloride 0.9% 1,000 ML IV SCH (10:12)
[2023-08-23] MEDS: Hydrochlorothiazide 25 MG TAB PO SCH (10:12)
[2023-08-23 12:57] VITALS: TEMP 98.2
[2023-08-23 16:35] VITALS: BP 112/76
[2023-08-24] MEDS ORDERED: CeleCOXIB 100 MG CAP PO SCH (09:00)
[2023-08-28] MEDS ORDERED: Estradiol 0.01% Vaginal Cream 42.5 gm Tube VAG SCH (21:00)
== END 2023-08-23 17:45 | disposition home or self-care (01) | DRG 470 ==
LOC: INTOOBSV 08-21 05:31 → SURG A 08-21 05:31 → SJJU 08-21 14:13 → OBSVTOIN 08-23 12:40
PROVIDERS: ADMIT Orthopaedic Surgery; ATTEND Orthopaedic Surgery
PROC: 0SRC0J9 Replacement of Right Knee Joint with Synthetic Substitute, Cemented, Open Approach (ICD-10-PCS; principal; 2023-08-21)
DX: M17.11 Unilateral primary osteoarthritis, right knee (principal); I25.10 Atherosclerotic heart disease of native coronary artery without angina pectoris; I48.0 Paroxysmal atrial fibrillation; G47.33 Obstructive sleep apnea (adult) (pediatric); E78.2 Mixed hyperlipidemia; I10 Essential (primary) hypertension; K21.9 Gastro-esophageal reflux disease without esophagitis; E66.9 Obesity, unspecified; Z90.49 Acquired absence of other specified parts of digestive tract; Z98.890 Other specified postprocedural states; Z90.710 Acquired absence of both cervix and uterus; Z68.35 Body mass index [BMI] 35.0-35.9, adult
CPT/HCPCS: 36415; 85027; 88305; 94664; A4306; C1776; C9113; J0360; J1100; J1170; J1885; J2250; J2405; J2550; J2704; J2795; J3010; J3370; J3490; J7050; S0020

== ENCOUNTER 2024-07-16 10:03 | Outpatient (CLI) | payer MEDICARE | END 2024-07-16 10:04 | disposition home or self-care (01) | LOC: BICCT 10:03 | PROVIDERS: ATTEND Family Medicine | DX: R91.8 Other nonspecific abnormal finding of lung field (principal); R93.89 Abnormal findings on diagnostic imaging of other specified body structures | CPT/HCPCS: 71250 ==

== ENCOUNTER 2024-08-12 09:01 | Outpatient (CLI) | payer MEDICARE | END 2024-08-12 09:02 | disposition home or self-care (01) | LOC: RAD 09:01 | PROVIDERS: ATTEND Internal Medicine Critical Care Medicine | DX: R06.00 Dyspnea, unspecified (principal); J84.10 Pulmonary fibrosis, unspecified; I51.7 Cardiomegaly | CPT/HCPCS: 71046 ==